=== PATIENT | female | born 1980 | race Caucasian/White ===

== ENCOUNTER 2024-05-06 13:22 | Outpatient (AMB) | payer OTHER, SELFPAY ==
--- NOTE | 2024-05-06 13:24 | MHC.PC.OV ---
Vital Signs 05/06/24 13:31 Height 5 ft 7.5 in Weight 170 lb BMI 26.2 BP 90/54 L Blood Pressure Location Lt brachial Position Sitting Pulse 67 Pulse Source Pulse Oximeter Temp 97.3 F Temp Source Temporal Artery Scan Pulse Oximetry (%) 98 Oxygen Delivery Method Room Air Intake Visit Reasons: establish care Intake Note: Patient is a new patient here to establish care. Transferring care from [facility]. Medical records have been requested today. Rat Trapper Required: No Accompanied by: Self / Same As Patient Allergies No Known Allergies Allergy (Verified 05/06/24 13:45) Medication List - Last Reconciled 05/06/24 by Sujey Ledezma PA-C No Known Home Meds Tobacco use date assessed: 05/06/24 Dental Screening Dental Screen Date: 05/06/24 Did you have a dental visit in the last 12 months?: Yes Did you have a dental problem in the last 6 months where you did not have access to dental care?: No Was dental information given to patient?: Patient has dentist HPI establish care HPI Details 44-year-old female coming to the office for the 1st time. Patient is not known to [facility]. Patient tells us today she was previously being seen at [facility] last seen a couple of years ago. She last had a mammogram 2022 and has a history of calcification being removed from the right breast. She takes gruf-ilz-nnvrzan supplements iron, B12 and vitamin-C as well as hair skin and nail gummies. Last week she tried to donate blood and was told that she had too low of an iron level. She does note increased anxiety related to life stress but utilizes a counselor when needed. She does have an issue with constipation and drinks plenty of water host health with her bowel motility. She does also mentioned having small bumps on the scalp that has been growing with a past several years and are occasionally tender to palpation. She does have a history of 1 being removed. [facility] Medical History (Updated 05/06/24 @ 14:25 by Sujey Ledezma PA-C) Microcalcification of right breast on mammogram Depression Surgical History (Updated 05/06/24 @ 13:49 by CLARE Hudson) Hx of breast lump removal Social History Housing: House Patient Tobacco Use Status: Never used Tobacco e-Cigarette/Vaping Use: Never Used service: No Current occupational status: employed Current occupation: technical research scientist Cognitive needs: No Hearing needs: No Vision needs: No Questionnaire PHQ-9 Over the last 2 weeks, how often have you been bothered by any of the following problems? 1. Little interest or pleasure in doing things: not at all 2. Feeling down, depressed, or hopeless: several days 3. Trouble falling or staying asleep, or sleeping too much: not at all 4. Feeling tired or having little energy: several days 5. Poor appetite or overeating: not at all 6. Feeling bad about yourself - or that you are a failure or have let yourself or your family down: several days 7. Trouble concentrating on things, such as reading the newspaper or watching television: not at all 8. Moving or speaking so slowly that other people could have noticed. Or the opposite - being so fidgety or restless that you have been moving around a lot more than usual: several days 9. Thoughts that you would be better off or of hurting yourself in some way: not at all Total score: 4 Depression Screening Interpretation: Positive (counseling PRN ) Depression Screening Follow-up: In treatment Depression Screening Done: Yes 48415 - PHQ-9 Billing: Yes Source: Developed by Drs. Willis Montez, Caitlin Pemberton, Pablo Burns and colleagues, with an educational daniel from [employer]. Thrive Questionnaire Date Thrive assessed: 05/06/24 I am a: Patient What is your living situation today?: I have a steady place to live Within the past 12 months, did the food you bought not last and you didn't have the money to get more?: Never true Within the past 12 months, did you worry whether your food would run out before you got money to buy more?: Never true Do you have trouble paying for medicines?: No Do you have trouble getting transportation to medical appointments?: No Do you have trouble paying your heating and electricity bill?: No Do you have trouble taking care of your child, family member or friend?: No Do you have trouble with day-to-day activities such as bathing, preparing meals, shopping, managing finances, etc.?: No Are you currently unemployed and looking for a job?: No Are you interested in more education?: Yes Please select the resources that you would like help with: None Currently or been in a relationship where the following occur: I choose not to answer THRIVE Score: 0 AUDIT C Alcohol Use Questionnaire (AUDIT-C) 1. How often do you have a drink containing alcohol?: Monthly or less 2. How many drinks containing alcohol do you have on a typical day when you are drinking?: 1 or 2 3. How often do you have six or more drinks on one occasion?: Never Total Score: 1 TALIA-7 AMB Questionnaire TALIA-7 Date TALIA - 7 assessed: 05/06/24 Feeling nervous, anxious, or on edge: 1 = Several days Not being able to stop or control worryin = Several days Worrying too much about different things: 1 = Several days Trouble relaxin = Several days Being so restless that it is hard to sit still: 1 = Several days Becoming easily annoyed or irritable: 1 = Several days Feeling afraid as if something awful might happen: 1 = Several days Total TALIA-7 score (0-4 normal; 5-9 mild; 10-14 moderate; 15-21 severe): 7 Source: Developed by Drs. Willis Montez, Caitlin Pemberton, Pablo Burns and colleagues, with an educational daniel from [employer]. TALIA-7 Assessment Billing TALIA-7 Assessment Tool: TALIA-7 Assessment 21171 Review of Systems Const Denies body aches, Denies chills, Denies fever(s), Denies headache(s) and Denies poor appetite Eyes Reports no additional complaints ENT Denies dizziness and Denies headache(s) Card Denies chest pain, Denies syncope, Denies lightheadedness and Denies dyspnea Resp Denies cough and Denies dyspnea GI Denies abdominal pain, Reports bloating, Reports constipation, Denies diarrhea, Denies nausea and Denies vomiting Reports no additional complaints Musc Reports no additional complaints and Denies abnormal gait Skin/Breast Reports system reviewed and no additional complaints, except as documented Neuro Denies abnormal gait, Denies dizziness, Denies syncope and Denies headache(s) Psych Reports no additional complaints Physical exam (Primary Care) Vital Signs: Last Vital Signs Temp 97.3 F 05/06/24 13:31 Pulse 67 05/06/24 13:31 BP 90/54 L 05/06/24 13:31 Pulse Ox 98 05/06/24 13:31 Oxygen Delivery Method Room Air 05/06/24 13:31 BMI result Body Mass Index 26.2 Tobacco/Smoking Status: Tobacco use Status Tobacco use date assessed 05/06/24 05/06/24 13:25 Patient Tobacco Use Status Never used Tobacco 05/06/24 13:25 e-Cigarette/Vaping Use Never Used 05/06/24 13:25 PHQ-9: PHQ-9 Score PHQ-9: Total score 4 05/06/24 13:49 Depression Screening Interpretation: Positive (counseling PRN ) Depression Screening Follow-up: In treatment Thrive Assessment: Date of Thrive Assessment Date Thrive assessed 05/06/24 05/06/24 13:24 Currently or been in a relationship where the following occur: I choose not to answer Const General: cooperative, healthy appearing, comfortable and no acute distress Orientation/consciousness: patient oriented x3 HENMT Other: Multiple small, round, mobile, nontender masses on the scalp Head: Yes normocephalic Ears: hearing grossly normal bilaterally General nose exam: Normal external nose present Eyes General: appearance normal, both eyes and all related structures Conjunctivae: conjunctivae normal Neck Neck: Yes full ROM and Yes no lymphadenopathy Resp Effort & Inspection: normal respiratory effort Auscultation: clear to auscultation bilaterally, no crackles, no rales, no rhonchi and no wheezes Cardio Rate: regular rate Rhythm: regular rhythm Skin General skin exam: no rashes or lesions noted Neuro General: patient oriented x3 Gait exam (Neuro): Normal gait present Extrem General: Yes normal to inspection, Yes full ROM and No edema Psych Affect: normal affect Attitude: cooperative Insight: Good insight present (Psych) Judgement: Good judgement present (Psych) Coding Level of Care Code New Pt Level 4 (63937) Diagnoses Iron deficiency E61.1 Screening for hypercholesterolemia Z13.220 Lipoma D17.9 Constipation K59.00 Screening for breast cancer Z12.39 Anxiety F41.9 Additional Codes TALIA-7 Assessment Billing - TALIA-7 Assessment Tool: TALIA-7 Assessment 37399 ([id number]) PHQ-9 - 27227 - PHQ-9 Billing: Yes ([id number]) Assessment & Plan Assessment & Plan (1) Iron deficiency: Code(s): E61.1 - Iron deficiency Category: Medical Plan: Ordered for blood work for further evaluation. (2) Screening for hypercholesterolemia: Code(s): Z13.220 - Encounter for screening for lipoid disorders Category: Medical Plan: Ordered for blood work (3) Lipoma: Code(s): D17.9 - Benign lipomatous neoplasm, unspecified Category: Medical Plan: Patient has multiple small, mobile, nontender masses on scalp. Patient would like to have evaluated and possibly removed. Referral placed to General surgery. (4) Constipation: Code(s): K59.00 - Constipation, unspecified Category: Medical Plan: Three rules of constipation; increase water intake, increase fiber rich foods, exercise. Patient provided with low FODMAP diet information at this time. Advised to use MiraLax as needed for constipation. (5) Screening for breast cancer: Code(s): Z12.39 - Encounter for other screening for malignant neoplasm of breast Category: Medical Plan: Last screening mammogram January 2023 recommending routine annual screening. She does have a history of calcifications removed from the right breast 2021. (6) Anxiety: Code(s): F41.9 - Anxiety disorder, unspecified Category: Medical Plan: Patient states she has been having increased anxiety regarding recent life stress. She utilizes counseling services as needed. Declines medication at this time or further referrals. Plan This note was constructed using voice recognition software. While every effort has been made to ensure accuracy and rn field case manager, still areas may have been included sometimes these areas may affect the content or meeting of the given symptoms. Total time spent caring for the patient today was 30 minutes. This includes time spent before the visit reviewing the chart, time spent during the visit, and time spent after the visit and documentation. Orders: Orders Comprehensive Met. Panel Today Z00.00 - Encounter for general adult medical examination without abnormal findings Complete Blood Count Auto Diff Today Z00.00 - Encounter for general adult medical examination without abnormal findings Free T4 (Free Thyroxine) Today Z00.00 - Encounter for general adult medical examination without abnormal findings TSH reflex Free T4 Today Z00.00 - Encounter for general adult medical examination without abnormal findings Lipid Panel Today Z13.220 - Encounter for screening for lipoid disorders Vitamin B12 and Folate Today Z00.00 - Encounter for general adult medical examination without abnormal findings MM tomosynthesis screening BI Today Z12.31 - Encounter for screening mammogram for malignant neoplasm of breast IRON PROFILE Today E61.1 - Iron deficiency Vitamin D 25-OH Total Today Z00.00 - Encounter for general adult medical examination without abnormal findings Referrals Gastroenterology Referral Z12.11 - Encounter for screening for malignant neoplasm of colon SENIOR QA ENGINEER Referral Z12.4 - Encounter for screening for malignant neoplasm of cervix General Surgery Referral D17.9 - Benign lipomatous neoplasm, unspecified
--- OUTSIDE RECORDS SUMMARY | 2024-05-06 13:29 | XMS_ITS | Clinical Summary ---
Author Organization [facility] Address [address] [place] [address] Care Team Providers Care Plate Shear Operator Name Role Phone Steffanie Gandhi NP Primary Care Provider [phone] Family History Medical History Relation Name Comments Cancer Father Heart attack Father Heart attack Maternal Grandfather COPD Mother Psoriasis Sister Relation Name Status Comments Brother Alive Father Maternal Grandfather Maternal Grandmother Mother Paternal Grandfather Paternal Grandmother Sister Alive Social History Tobacco Use Types Packs/Day Years Used Date Smoking Tobacco: Never Alcohol Use Standard Drinks/Week Comments Never 0 (1 standard drink = 0.6 oz pur e alcohol) Comments Unknown Sex and Gender Information Value Date Recorded Sex Assigned at Not on file Legal Sex Female 5:05 PM EST Gender Identity Not on file Sexual Orientation Not on file Obstetrics History Last Filed Vital Signs Vital Sign Reading Time Taken Comments Blood Pressure 110/70 10/30/2022 8:58 AM EDT Pulse 81 10/30/2022 8:58 AM EDT Temperature - - Respiratory Rate - - Oxygen Saturation - - Inhaled Oxygen Concentration - - Weight 74.9 kg (165 lb 3.2 oz) 10/30/2022 8:58 A M EDT Height 154.3 cm (5' 0.75 ) 10/30/2022 8:58 AM ED T Body Mass Index 31.47 10/30/2022 8:58 AM EDT Plan of Treatment Health Maintenance Due Date Last Done Comments Cervical Cancer Screening: HPV 1999 Colorectal Cancer Screening: Colonoscopy 03/02/2022 Depression Screening 03/02/2022 HIV Screening 03/02/2022 Hepatitis C Screening 03/02/2022 Social Influencers of Health Screening 03/02/2022 Breast Cancer Screening 05/30/2023 05/29/2021 COVID-19 Vaccine ( season) 2023 Influenza Vaccine (#1) 2023 1, 12/02/2019, 01/28/2019, Additional history exists DTaP,Tdap,and Td Vaccines (6 - Td or Tdap) 09/29/2029 09/30/2019, 07/14/2017, 11/25/2014, Additional history exists Varicella Vaccines Completed 02/06/1996, 05/09/1995 Hepatitis B Vaccines Completed 09/06/1996, 04/08/1996, 03/08/1996 MMR Vaccines Completed 01/24/2009, 11/11/1989 HIB Vaccines Aged Out No longer eligi ble based on patient's age to complete this topic HPV Vaccines Aged Out No longer eligi ble based on patient's age to complete this topic Hepatitis A Vaccines Aged Out No long er eligible based on patient's age to complete this topic IPV Vaccines Aged Out No longer eligi ble based on patient's age to complete this topic Meningococcal ACWY Vaccine Aged Out N o longer eligible based on patient's age to complete this topic Pneumococcal Vaccine: Pediatrics (0 to 5 Years) and At-Risk Patients (6 to 64 Years) Aged Out No longer eligible based on patient's age to complete this topic RSV Immunization Patients Under 20 months Aged Out No longer eligible based on patient's age to complete this topic Procedures Procedure Name Priority Date/Time Associated Diagnosis Comments SCREENING MAMMOGRAPHY BI 2-VIEW BREAST INC CAD Routine 05/29/2021 3:21 PM EST Encounter for screening mammogram for malignant neoplasm of breast from Last 3 Months or Most Recently Relevant to Health Maintenance Results * SCREENING MAMMOGRAPHY BI 2-VIEW BREAST INC CAD (05/29/2021 3:21 PM EST) Anatomical Region Laterality Modality Radiographic Dagmar ging 02/19/2021 3:17 PM EST Narrative 05/31/2021 11:52 AM EST This is a summary report. The complete report is available in the patient's medical record. If you cannot access the medical record, please contact the sending organization for a detailed fax or copy. Baseline screening, full field digital 2D and 3D mammography, reviewed with CAD. ??The breasts are composed of fatty and fibroglandular tissue. ??No suspicious mass or architectural distortion is identified. There are rounded and punctate microcalcifications loosely grouped and scattered in the upper outer quadrant of the right breast. IMPRESSION: : Microcalcifications upper outer right breast. ??Magnification views of the right breast in the CC and medial projections are suggested. ??The patient will be contacted by the radiology department to arrange for the additional imaging. BIRADS 0-incomplete: Additional imaging evaluation needed 5 year breast cancer risk assessment 0.5 % Lifetime breast cancer risk assessment 7.1 % Breast cancer risk category Low (<15%) Procedure Note Wanda Laughlin MD - 03/12/2022 This is a summary report. The complete report is available in thepatient's medical record. If you cannot access the medical record, pleasecontact the sending organization for a detailed fax or copy. Baseline screening, full field digital 2D and 3D mammography, reviewedwith CAD. The breasts are composed of fatty and fibroglandular tissue.No suspicious mass or architectural distortion is identified. There are rounded and punctate microcalcifications loosely grouped andscattered in the upper outer quadrant of the right breast. IMPRESSION: : Microcalcifications upper outer right breast. Magnification views of theright breast in the CC and medial projections are suggested. The patientwill be contacted by the radiology department to arrange for theadditional imaging. BIRADS 0-incomplete: Additional imaging evaluation needed 5 year breast cancer risk assessment 0.5 % Lifetime breast cancer risk assessment 7.1 % Breast cancer risk category Low (<15%) us Apryl PALACIOS IMG XR PROCEDURES Final Re sult from Last 3 Months or Most Recently Relevant to Health Maintenance Care Teams Plate Shear Operator Relationship Specialty Start Date End Date Steffanie Gandhi NP PCP - General 10/30/22
--- OUTSIDE RECORDS SUMMARY | 2024-05-06 13:29 | XMS_ITS | Data Portability ---
Author Organization [facility] Maternal Medicine, [facility] (Prof.) Address [address], [address] [place] [address] Assessment No assessment recorded. Plan of Treatment Reminders Order Date Submit Date Provider Last Modified By Organization Details Last Modified Time Details Appointments None record ed. Lab None record ed. Referral None record ed. Procedures None record ed. Surgeries None record ed. Imaging None record ed. Medication Orders None record ed. Patient TargetsNo targets recorded. Patient InstructionsNo instructions recorded. Reason for Referral None Reported. Medical Equipment None Reported. Medications Name Sig Start Date Stop Date Status Note LastModified by Organization Details LastModified Time azithromycin 250 mg tablet active Not Available Not Availabl e Not Available prednisone 50 mg tablet active Not Available Not Available No t Available Vitals None Recorded Social History None recorded. Functional Status None recorded. Mental Status None recorded. Family History Nothing Reported. Medical History No medical history recorded. Gynecological HistoryNo gynecological history recorded. Obstetrics History GPAL:G 0 P 0 0 0 0 Past Encounters Encounter ID Performer Location Encounter Start Date Encounter Closed Date Diagnosis/Indication Diagnosis SNOMED-CT Code Diagnosis ICD10 Code Diagnosis Note [id number] [address] 06/19/2017 12:17:46 06/23/2017 11:57:06 Health Concerns Section Related Observation LastModified by Organization Detai ls LastModified Time None Recorded Concern Status LastModified by Organization Details LastModified Time None Recorded Advance Directives Directive None Recorded Payers Encounter Date Sequence Insurance Name Policy Number Policy Meléndez Covered Member ID Meléndez Member ID Guarantor Name 06/19/2017 1 [place] [id number] Alexy Austin [id number] [facility] Episode No OBEpisode recorded.
--- OUTSIDE RECORDS SUMMARY | 2024-05-06 13:29 | XMS_ITS | Clinical Summary ---
Author Organization [facility] Address [address] [place] [address] Care Team Providers Care Nurse Researcher Name Role Phone Steffanie Gandhi APRN Primary Care Provider [phone] Allergies No known active allergies Medications Medication Sig Dispensed Refills Start Date End Date Status multiple vitamin (M.V.I. Adult) injection Inject into the vein. 0 Active Active Problems No known active problems Family History Medical History Relation Name Comments Cancer Father Heart attack Father Heart attack Maternal Grandfather COPD Mother Psoriasis Sister Relation Name Status Comments Brother Alive Father Maternal Grandfather Maternal Grandmother Mother Paternal Grandfather Paternal Grandmother Sister Alive Social History Tobacco Use Types Packs/Day Years Used Date Smoking Tobacco: Never Tobacco Cessation:Counseling Given: Not Answered Alcohol Use Standard Drinks/Week Comments Never 0 (1 standard drink = 0.6 oz pur e alcohol) socially Sex and Gender Information Value Date Recorded Sex Assigned at Not on file Gender Identity Not on file Sexual Orientation Not on file Job Start Date Occupation Industry Not on file Not on file Not on file Last Filed Vital Signs Vital Sign Reading Time Taken Comments Blood Pressure 110/70 10/30/2022 8:58 AM EDT Pulse 81 10/30/2022 8:58 AM EDT Temperature - - Respiratory Rate - - Oxygen Saturation 99% 10/30/2022 8:58 AM EDT Inhaled Oxygen Concentration - - Weight 74.9 kg (165 lb 3.2 oz) 10/30/2022 8:58 A M EDT Height 154.3 cm (5' 0.75 ) 10/30/2022 8:58 AM ED T Body Mass Index 31.47 10/30/2022 8:58 AM EDT Plan of Treatment Health Maintenance Due Date Last Done Comments Hepatitis C Screening 1978 COVID-19 Vaccine (#1) 1978 Depression Screening 1990 BMI Counseling 02/04/1996 Cervical Cancer Screening (Pap Smear) 1999 Colon Cancer Screening (Colonoscopy) 2023 Preventative Health Evaluation 10/31/2023 10/30/2022 Influenza Vaccine (#1) 2023 , 12/02/2019, 01/28/2019, Additional history exists DTap / Tdap / Td (6 - Td or Tdap) 09/29/2029 09/30/2019, 07/14/2017, 11/25/2014, Additional history exists Hepatitis B Vaccines Completed 09/06/1996, 04/08/1996, 03/08/1996 Pneumococcal Vaccine Aged Out No long er eligible based on patient's age to complete this topic RSV Ped < 20 months Aged Out No longe r eligible based on patient's age to complete this topic Care Teams Nurse Researcher Relationship Specialty Start Date End Date Steffanie Gandhi APRN PCP - General Family Medicine 10/30/22
[2024-05-06 13:31] VITALS: BP 90/54; PULSE 67; TEMP 36.3; O2SAT 98; BMI 26.2
== END 2024-05-06 14:08 | disposition home or self-care (01) ==
DX: E61.1 Iron deficiency (principal); Z13.220 Encounter for screening for lipoid disorders; D17.9 Benign lipomatous neoplasm, unspecified; K59.00 Constipation, unspecified; Z12.39 Encounter for other screening for malignant neoplasm of breast; F41.9 Anxiety disorder, unspecified

== ENCOUNTER → 2024-05-06 13:22 | Outpatient (BNVA) | payer OTHER, SELFPAY | DX: E61.1 Iron deficiency (principal); D17.0 Benign lipomatous neoplasm of skin and subcutaneous tissue of head, face and neck; K59.00 Constipation, unspecified; F41.9 Anxiety disorder, unspecified | CPT/HCPCS: 96127 ==

== ENCOUNTER 2024-05-13 07:11 | Outpatient (REF) | payer OTHER, SELFPAY ==
--- OUTSIDE RECORDS SUMMARY | 2024-05-13 07:15 | XMS_ITS | Clinical Summary ---
Author Organization [facility] Address [address] [place] [address] Care Team Providers Care Straw Hat Washer Operator Name Role Phone Steffanie Gandhi APRN Primary Care Provider [phone] Allergies No known active allergies Medications Medication [...] age to complete this topic Care Teams Straw Hat Washer Operator Relationship Specialty Start Date End Date Steffanie Gandhi APRN PCP - General Family Medicine 10/30/22
--- OUTSIDE RECORDS SUMMARY | 2024-05-13 07:15 | XMS_ITS | Data Portability ---
Author Organization [facility] Maternal Medicine, [facility] (Prof.) Address [address], [address] [place] [address] Assessment No assessment recorded. Plan of Treatment [...] SNOMED-CT Code Diagnosis ICD10 Code Diagnosis Note [id number] [address] 06/19/2017 12:17:46 06/23/2017 11:57:06 Health Concerns Section Related Observation LastModified by Organization Detai ls LastModified Time None Recorded Concern Status LastModified by Organization Details LastModified Time None Recorded Advance Directives Directive None Recorded Payers Encounter Date Sequence Insurance Name Policy Number Policy Meléndez Covered Member ID Meléndez Member ID Guarantor Name 06/19/2017 1 [place] [id number] Alexy Austin [id number] Mine [facility] Episode No OBEpisode recorded.
[2024-05-13 07:24] LABS: MANUAL DIFF FLAG NO
[2024-05-13 07:35] LABS: Basophils Absolute Auto 0.1 X10*3/uL (0.0-0.2); Eosinophils Absolute Auto 0.1 X10*3/uL (0.0-0.4); Eosinophils Percent Auto 1.8 % (0-4); Hematocrit 40.4 % (37.0-47.0); Hemoglobin 13.7 g/dl (12.0-16.0); Imm Gran Abs Auto 0.02 X10*3/uL (0.00-0.03); Imm Gran Pct Auto 0.3 % (0.0-0.4); Lymphocytes Absolute Auto 2.7 X10*3/uL (1.2-4.9); Lymphocytes Percent Auto 36.7 % (20-40); Mean Corpuscular HGB Conc 33.9 g/dl (31.0-35.0); Mean Corpuscular Hemoglobin 30.1 pg (27.0-33.0); Mean Corpuscular Volume 88.8 fL (80.0-98.0); Mean Platelet Volume 9.4 fL (9.4-12.3); Monocytes Absolute Auto 0.6 X10*3/uL (0.1-1.2); Monocytes Percent Auto 8.4 % (2-11); Neutrophils Absolute Auto 3.8 x10*3/uL (2.0-8.3); Neutrophils Percent Auto 51.8 % (45-73); Platelet Count 226 X10*3/uL (160-400); Red Blood Count 4.55 X10*6/uL (4.20-5.50); Red Cell Distribution Width 11.7 % (11.0-16.0); White Blood Count 7.4 X10*3/uL (4.8-10.8)
[2024-05-13 07:55] LABS: Alanine Aminotransferase 18 U/L (0-31); Albumin Level 4.2 g/dL (3.5-5.0); Alkaline Phosphatase 60 U/L (39-117); Anion Gap 10 (12-20); Aspartate Amino Transferase 23 U/L (5-31); Bilirubin Total 0.9 mg/dL (0.0-1.0); Blood Urea Nitrogen 11 mg/dL (9-16); Calcium 9.1 mg/dL (8.4-10.2); Carbon Dioxide 27 mmol/L (22-29); Chloride 106 mmol/L (96-108); Cholesterol 135 mg/dL (<200); Estimated Glomerular Filt Rate > 60; Glucose Random 85 mg/dL (60-115); HDL Cholesterol 64 mg/dL (>40); Iron 73 mcg/dL (30-160); LDL Cholesterol Calculated 61 mg/dL (<100); Percent Iron Saturation 27 % (15-50); Potassium 3.8 mmol/L (3.3-5.1); Sodium 139 mmol/L (135-145); Total Iron Binding Capacity 270 mcg/dL (228-428); Total Protein 7.8 g/dL (6.5-8.0); Triglycerides 54 mg/dL (<150); Unsaturated Iron Binding 197 ug/dL
[2024-05-13 08:22] LABS: Free T4 (Free Thyroxine) 0.98 ng/dL (0.71-1.85); TSH reflex Free T4 1.23 uIU/mL (0.32-4.0); Vitamin D 25-OH Total 40.2 ng/mL (>30)
[2024-05-13 08:35] LABS: Folate 14.6 ng/mL (> or = 4.0); Vitamin B12 1618 pg/mL (200-900)
== END 2024-05-13 07:12 | disposition home or self-care (01) ==
LOC: HO.LAB 07:11
DX: Z00.00 Encounter for general adult medical examination without abnormal findings (principal); E61.1 Iron deficiency; Z13.220 Encounter for screening for lipoid disorders; Z13.6 Encounter for screening for cardiovascular disorders
CPT/HCPCS: 36415; 80053; 80061; 82306; 82607; 82746; 83540; 84439; 84443; 85025

== ENCOUNTER 2024-05-25 12:54 | Outpatient (AMB) | payer OTHER, SELFPAY ==
--- NOTE | 2024-05-25 12:57 | MHC.OFFVIS ---
Intake Visit Reasons: Mass~Scalp Intake Note: Patient referred by pcp Sujey Ledezma PA-C for mass on scalp. Has 3 cysts on scalp that vary in size. Present for yrs. Patient c/o: hx of cyst removal on vertex 2yrs ago. Paint Formulator Required: No Accompanied by: Self / Same As Patient Allergies No Known Allergies Allergy (Verified 05/25/24 13:00) Medication List - Last Reconciled 05/25/24 by Wolfgang Lopez MD No Known Home Meds HPI Comments Details: Patient presents for evaluation of 2 scalp cyst. She has had this indeterminate amount of time. They are each increasing in size, become more symptomatic. She would like to have them removed. She had history of excision of cyst of the scalp in the past. Chart was reviewed and patient evaluated. [facility] Medical History (Updated 05/06/24 @ 14:25 by Sujey Ledezma PA-C) Microcalcification of right breast on mammogram Depression Surgical History (Updated 05/25/24 @ 13:46 by Wolfgang Lopez MD) Hx of breast lump removal Social History Housing: House Patient Tobacco Use Status: Never used Tobacco e-Cigarette/Vaping Use: Never Used service: No Current occupational status: employed Current occupation: electrical service technician Cognitive needs: No Hearing needs: No Vision needs: No Physical Exam HEENT Other: Patient was a 3 x 2 cm right temporal pilar cyst and a 2 x 2 cm vertex scalp pilar cyst Office Procedures Excision Details: Risks, benefits and alternatives of excision of pilar cyst of the scalp x2 were reviewed with the patient and included but not limited to bleeding, infection, recurrence, numbness, pain, scarring the patient wished to proceed. All questions answered. Consent signed. After appropriate positioning and pre Marcaine, patient underwent 1% lidocaine and Betadine prep and uneventful enucleation of the 2 cysts, each sent separately to pathology. Each wound was irrigated, secured hemostasis, and closed using interrupted 2-0 Prolene suture followed by bacitracin. Patient tolerated procedure well. 35377-Xlnlfthu scalp/neck/hands/feet/genitalia 1.1cm-2cm 70840-Osjzfwwn scalp/neck/hands/feet/genitalia 2.1cm-3cm Procedure code (CPT) selection complete Office Meds lidocaine 1 %-epinephrine 1:100,000 injection solution Performing Provider: Wolfgang Lopez MD Performing Location: [facility] General Surgeons Administered by: Wolfgang Lopez MD on 05/25/24 13:45 Dose Route Admin Location Dispensed Lot Number Expiration Date NDC Medical Director Of Hospice 10 mL Infiltration 10 mL Assessment & Plan Assessment & Plan (1) Pilar cysts: Code(s): L72.11 - Pilar cyst Category: Surgical Plan: Patient was been given local instructions including bacitracin to the area each day, ice periodically, Tylenol or Motrin p.r.n. pain, and she will see me in 1-1/2 weeks time for follow-up and suture removal or p.r.n.. All questions answered. Orders: Orders AMB Excision Today L72.11 - Pilar cyst Medications: New lidocaine-epinephrine 1 %-1:100,000 10 mL Infiltration ONCE 30 mL 0RF L72.11 - Pilar cyst Coding Level of Care Code New Pt Level 5 (84054) Diagnoses Pilar cysts L72.11 CPT Codes Scalp/Neck/Hands/Feet/Genetalia - CPT: 34618-Gwfluhla scalp/neck/hands/feet/genitalia 1.1cm-2cm ([id number]) Scalp/Neck/Hands/Feet/Genetalia - CPT: 30720-Modmvvwe scalp/neck/hands/feet/genitalia 2.1cm-3cm ([id number])
--- OUTSIDE RECORDS SUMMARY | 2024-05-25 15:56 | XMS_ITS | Clinical Summary ---
Author Organization [facility] Address [address] [place] [address] Care Team Providers Care Wildlife Biostation Research Ecologist Name Role Phone Steffanie Gandhi APRN Primary Care Provider [phone] Allergies No known active allergies Medications Medication [...] age to complete this topic Care Teams Wildlife Biostation Research Ecologist Relationship Specialty Start Date End Date Steffanie Gandhi APRN PCP - General Family Medicine 10/30/22
--- OUTSIDE RECORDS SUMMARY | 2024-05-25 15:56 | XMS_ITS | Clinical Summary ---
Author Organization [employer] [facility] Address [address] [place] [address] Care Team Providers Care Towboat Pilot Name Role Phone Steffanie Gandhi NP Primary Care Provider [phone] Family History Medical History Relation Name Comments [...] patient's age to complete this topic Meningococcal B Vacine Aged Out No lo nger eligible based on patient's age to complete [...] Recently Relevant to Health Maintenance Care Teams Towboat Pilot Relationship Specialty Start Date End Date Steffanie Gandhi NP PCP - General 10/30/22
--- OUTSIDE RECORDS SUMMARY | 2024-05-25 15:56 | XMS_ITS | Data Portability ---
Author Organization [facility] Maternal Medicine, [facility] (Prof.) Address [address], [address] [place] [address] Assessment No assessment recorded. Plan of Treatment [...] SNOMED-CT Code Diagnosis ICD10 Code Diagnosis Note [id number] [address] 06/19/2017 12:17:46 06/23/2017 11:57:06 Health Concerns Section Related Observation LastModified by Organization Detai ls LastModified Time None Recorded Concern Status LastModified by Organization Details LastModified Time None Recorded Advance Directives Directive None Recorded Payers Encounter Date Sequence Insurance Name Policy Number Policy Meléndez Covered Member ID Meléndez Member ID Guarantor Name 06/19/2017 1 [place] [id number] Alexy Avila [id number] 02 Mine Avila OBGyn Episode No OBEpisode recorded.
== END 2024-05-25 13:28 | disposition home or self-care (01) ==
PROVIDERS: Visit Provider Surgery
DX: L72.11 Pilar cyst (principal)
CPT/HCPCS: 11422; 11423; 99204

== ENCOUNTER 2024-05-25 12:54 | Outpatient (REF) | payer OTHER, SELFPAY ==
--- OUTSIDE RECORDS SUMMARY | 2024-05-25 18:10 | XMS_ITS | Clinical Summary ---
Author Organization [facility] Address [address] [place] [address] Care Team Providers Care Emergency Room Specialist Name Role Phone Steffanie Gandhi APRN Primary Care Provider [phone] Allergies No known active allergies Medications Medication [...] age to complete this topic Care Teams Emergency Room Specialist Relationship Specialty Start Date End Date Steffanie Gandhi APRN PCP - General Family Medicine 10/30/22
--- OUTSIDE RECORDS SUMMARY | 2024-05-25 18:10 | XMS_ITS | Clinical Summary ---
Author Organization [employer] [facility] Address [address] [place] [address] Care Team Providers Care Dye Beck Reel Operator Name Role Phone Steffanie Gandhi NP Primary Care Provider [phone] Family History Medical History Relation Name Comments [...] Recently Relevant to Health Maintenance Care Teams Dye Beck Reel Operator Relationship Specialty Start Date End Date Steffanie Gandhi NP PCP - General 10/30/22
== END 2024-05-25 12:55 | disposition home or self-care (01) ==
LOC: HO.LNP 12:54
PROVIDERS: Visit Provider Surgery
DX: L72.11 Pilar cyst (principal)
CPT/HCPCS: 11422; 11423; 88304; J2004

== ENCOUNTER 2024-06-08 14:30 | Outpatient (AMB) | payer OTHER, SELFPAY ==
--- NOTE | 2024-06-08 14:55 | MHC.OFFVIS ---
Intake Visit Reasons: suture removal Mass~Scalp Allergies No Known Allergies Allergy (Verified 05/25/24 13:00) HPI Comments Details: Status post scalp cyst excision x2. No wound issues or complaints. Pathology is benign [facility] Medical History (Updated 05/06/24 @ 14:25 by Sujey Ledezma PA-C) Microcalcification of right breast on mammogram Depression Surgical History (Updated 06/08/24 @ 14:56 by Wolfgang Lopez MD) Hx of breast lump removal Social History Housing: House Patient Tobacco Use Status: Never used Tobacco e-Cigarette/Vaping Use: Never Used service: No Current occupational status: employed Current occupation: advanced manufacturing technician Cognitive needs: No Hearing needs: No Vision needs: No Physical Exam HEENT Other: Both incision sites clean dry and intact. Uneventful suture removal. Assessment & Plan Assessment & Plan (1) Visit for wound check: Code(s): Z51.89 - Encounter for other specified aftercare Category: Surgical Plan Patient was been given local instructions, and will follow-up p.r.n.. All questions answered Coding Level of Care Code Global (91855) Diagnoses Visit for wound check Z51.89
--- OUTSIDE RECORDS SUMMARY | 2024-06-08 17:15 | XMS_ITS | Clinical Summary ---
Author Organization [employer] [facility] Address [address] [place] [address] Care Team Providers Care Registry Np Name Role Phone Steffanie Gandhi NP Primary Care Provider [phone] Family History Medical History Relation Name Comments [...] Recently Relevant to Health Maintenance Care Teams Registry Np Relationship Specialty Start Date End Date Steffanie Gandhi NP PCP - General 10/30/22
--- OUTSIDE RECORDS SUMMARY | 2024-06-08 17:15 | XMS_ITS | Data Portability ---
Author Organization [facility] Maternal Medicine, [facility] (Prof.) Address [address], [address] [place] [address] Assessment No assessment recorded. Plan of Treatment [...] SNOMED-CT Code Diagnosis ICD10 Code Diagnosis Note [address] [address] 06/19/2017 12:17:46 06/23/2017 11:57:06 Health Concerns Section Related Observation LastModified by Organization Detai ls LastModified Time None Recorded Concern Status LastModified by Organization Details LastModified Time None Recorded Advance Directives Directive None Recorded Payers Encounter Date Sequence Insurance Name Policy Number Policy Meléndez Covered Member ID Meléndez Member ID Guarantor Name 06/19/2017 1 [place] [id number] Alexy Avila [id number] 02 Mine Avila OBGyn Episode No OBEpisode recorded.
--- OUTSIDE RECORDS SUMMARY | 2024-06-08 17:15 | XMS_ITS | Clinical Summary ---
Author Organization [facility] Address [address] [place] [address] Care Team Providers Care Wildland Fire Fighter Name Role Phone Steffanie Gandhi APRN Primary Care Provider [phone] Allergies No known active allergies Medications Medication [...] age to complete this topic Care Teams Wildland Fire Fighter Relationship Specialty Start Date End Date Steffanie Gandhi APRN PCP - General Family Medicine 10/30/22
== END 2024-06-08 14:55 | disposition home or self-care (01) ==
LOC: HO.HGS 14:30
PROVIDERS: Visit Provider Surgery
DX: Z51.89 Encounter for other specified aftercare (principal)
CPT/HCPCS: 99024

== ENCOUNTER → 2024-06-08 14:30 | Outpatient (BNVA) | payer OTHER, SELFPAY | PROVIDERS: Visit Provider Surgery ==

== ENCOUNTER → 2024-06-22 14:00 | Outpatient (BNV) | payer OTHER, SELFPAY | PROVIDERS: Visit Provider Internal Medicine | DX: Z12.31 Encounter for screening mammogram for malignant neoplasm of breast (principal) | CPT/HCPCS: 77063; 77067 ==

== ENCOUNTER 2024-06-22 14:02 | Outpatient (REF) | payer OTHER, SELFPAY ==
--- OUTSIDE RECORDS SUMMARY | 2024-06-22 16:46 | XMS_ITS | Data Portability ---
Author Organization [facility] Maternal Medicine, [facility] (Prof.) Address [address], [address] [place] [address] Assessment No assessment recorded. Plan of Treatment [...] SNOMED-CT Code Diagnosis ICD10 Code Diagnosis Note [id number] [address] 06/19/2017 12:17:46 06/23/2017 11:57:06 Health Concerns Section Related Observation LastModified by Organization Detai ls LastModified Time None Recorded Concern Status LastModified by Organization Details LastModified Time None Recorded Advance Directives Directive None Recorded Payers Encounter Date Sequence Insurance Name Policy Number Policy Meléndez Covered Member ID Meléndez Member ID Guarantor Name 06/19/2017 1 [place] [id number] Tracey Austin [id number] 02 Mine Avila OBGyn Episode No OBEpisode recorded.
--- OUTSIDE RECORDS SUMMARY | 2024-06-22 16:46 | XMS_ITS | Clinical Summary ---
Author Organization [employer] [facility] Address [address] [place] [address] Care Team Providers Care Choir Singer Name Role Phone Steffanie Gandhi NP Primary Care Provider [phone] Family History Medical History Relation Name Comments [...] Recently Relevant to Health Maintenance Care Teams Choir Singer Relationship Specialty Start Date End Date Steffanie Gandhi NP PCP - General 10/30/22
--- OUTSIDE RECORDS SUMMARY | 2024-06-22 16:46 | XMS_ITS | Clinical Summary ---
Author Organization [facility] Address [address] [place] [address] Care Team Providers Care Personnel Consultant Name Role Phone Steffanie Gandhi APRN Primary Care Provider [phone] Allergies No known active allergies Medications Medication [...] age to complete this topic Care Teams Personnel Consultant Relationship Specialty Start Date End Date Steffanie Gandhi APRN PCP - General Family Medicine 10/30/22
== END 2024-06-22 14:03 | disposition home or self-care (01) ==
LOC: HO.MAMMO 14:02
DX: Z12.31 Encounter for screening mammogram for malignant neoplasm of breast (principal)
CPT/HCPCS: 77063; 77067

== ENCOUNTER 2024-08-03 13:36 | Outpatient (AMB) | payer OTHER, SELFPAY ==
--- NOTE | 2024-08-03 13:42 | MHC.PC.OV ---
Vital Signs 08/03/24 13:43 Height 5 ft 7.5 in Weight 169 lb 2 oz BMI 26.1 BP 110/62 Blood Pressure Location Lt brachial Position Sitting Pulse 57 Pulse Source Pulse Oximeter Temp 97.3 F Temp Source Temporal Artery Scan Pulse Oximetry (%) 97 Oxygen Delivery Method Room Air Intake Visit Reasons: annual exam Intake Note: Patient is here today for a physical. Utilities Manager Required: No Theater Manager: Not Required per policy Accompanied by: Self / Same As Patient Allergies No Known Allergies Allergy (Verified 08/03/24 13:58) Medication List - Last Reconciled 08/03/24 by Sujey Ledezma PA-C No Known Home Meds Tobacco use date assessed: 08/03/24 Dental Screening Dental Screen Date: 05/06/24 HPI annual exam HPI Details 44-year-old female with past medical history of iron-deficiency anemia, anxiety last seen 04/2024 coming in for annual exam. In review of the notes, patient was seen by General surgery 05/2024 for Pilar cyst on the scalp the 3 cyst were surgically excised patient went for postop wound check advised to follow up as needed. Reports enduring left foot pain, attributed to plantar fasciitis and evaluated by podiatry. Anti-inflammatory treatment previously provided some relief; adherence was inconsistent initially, leading to repeated prescription. Describes pain intensity localized to the left heel, exacerbated by ambulation. Reports relief from constipation with maintained hydration; no pharmacological intervention currently used. Experiences reduction in gastrointestinal symptoms, denoted by reduced bloating and gas, without changing diet. Podiatry through [facility] Mammogram: 06/22/2024 repeat in 1 year Pap smear: Referral was placed to gynecology at last visit Colonoscopy: Referral was placed to GI at last visit vaccines: DED [facility] Medical History Microcalcification of right breast on mammogram Depression Surgical History History of removal of cyst Hx of breast lump removal Social History Housing: House Patient Tobacco Use Status: Never used Tobacco e-Cigarette/Vaping Use: Never Used Second Hand Smoke Exposure: No service: No Current occupational status: employed Current occupation: technical supervisor Cognitive needs: No Hearing needs: No Vision needs: No Questionnaire Thrive Questionnaire Date Thrive assessed: 05/06/24 I am a: Patient What is your living situation today?: I have a steady place to live Within the past 12 months, did the food you bought not last and you didn't have the money to get more?: Never true Within the past 12 months, did you worry whether your food would run out before you got money to buy more?: Never true Do you have trouble paying for medicines?: No Do you have trouble getting transportation to medical appointments?: No Do you have trouble paying your heating and electricity bill?: No Do you have trouble taking care of your child, family member or friend?: No Do you have trouble with day-to-day activities such as bathing, preparing meals, shopping, managing finances, etc.?: No Are you currently unemployed and looking for a job?: No Are you interested in more education?: Yes Please select the resources that you would like help with: None Currently or been in a relationship where the following occur: I choose not to answer THRIVE Score: 0 TALIA-7 AMB Questionnaire TALIA-7 Date TALIA - 7 assessed: 05/06/24 Source: Developed by Drs. Willis Montez, Caitlin Pemberton, Pablo Burns and colleagues, with an educational daniel from [employer]. Review of Systems Const Denies body aches, Denies fatigue, Denies fever(s), Denies frequent falls, Denies headache(s) and Denies weakness Eyes Reports no additional complaints, Denies change in vision and Reports requires corrective lenses ENT Denies dysphagia, Denies dizziness, Denies facial pain, Denies headache(s), Denies nasal congestion and Denies odynophagia Card Denies chest pain, Denies syncope, Denies irregular heart rhythm, Denies leg edema, Denies lightheadedness and Denies dyspnea Resp Denies cough and Denies dyspnea GI Details: gas has been improving Denies abdominal pain, Denies constipation, Denies dysphagia, Denies dyspepsia, Denies diarrhea, Denies nausea, Denies odynophagia and Denies vomiting Denies urinary frequency, Denies dysuria, Denies urinary hesitancy and Denies urinary urgency Musc Details: left foot pain Denies back pain and Denies myalgias Skin/Breast Reports system reviewed and no additional complaints, except as documented Neuro Denies dizziness, Denies syncope, Denies frequent falls, Denies headache(s) and Denies weakness Psych Reports no additional complaints Endo Denies fatigue Physical exam (Primary Care) Vital Signs: Last Vital Signs Temp 97.3 F 08/03/24 13:43 Pulse 57 08/03/24 13:43 BP 110/62 08/03/24 13:43 Pulse Ox 97 08/03/24 13:43 Oxygen Delivery Method Room Air 08/03/24 13:43 BMI result Body Mass Index 26.1 Tobacco/Smoking Status: Tobacco use Status Tobacco use date assessed 08/03/24 08/03/24 13:45 Patient Tobacco Use Status Never used Tobacco 08/03/24 13:45 e-Cigarette/Vaping Use Never Used 08/03/24 13:45 Thrive Assessment: Date of Thrive Assessment Date Thrive assessed 05/06/24 08/03/24 13:45 Currently or been in a relationship where the following occur: I choose not to answer Const General: cooperative, healthy appearing, comfortable and no acute distress Orientation/consciousness: patient oriented x3 HENMT Head: Yes normocephalic Ears: hearing grossly normal bilaterally, external ears normal, TM's normal bilaterally and EAC's normal General nose exam: Normal external nose present Face and sinus: Yes normal facial exam and Yes sinuses nontender Mouth: Normal oral and palatal mucosa present and tongue normal Throat: Yes posterior oropharynx normal Eyes General: appearance normal, both eyes and all related structures Conjunctivae: conjunctivae normal Pupils: Equal, round and reactive pupils present EOM: EOMs intact bilaterally and No Nystagmus present Neck Neck: Yes normal visual inspection, Yes full ROM and Yes no lymphadenopathy Chest Chest palpation & inspection: normal inspection of the chest Resp Effort & Inspection: normal respiratory effort Auscultation: clear to auscultation bilaterally, no crackles, no rales, no rhonchi, no wheezes and breath sounds present Cardio Rate: regular rate Rhythm: regular rhythm Peripheral pulses: radial pulses present and dorsalis pedis present GI Inspection: Yes normal to inspection and No Abdominal wall edema Palpation (GI): Soft to palpation, not firm and nontender Auscultation: normal bowel sounds Rectal Exam - Female: deferred General: Yes no CVA tenderness Back/Spine/Pelvis Back: no CVA tenderness Skin General skin exam: no rashes or lesions noted Neuro General: patient oriented x3 Cranial nerves: Yes Equal, round and reactive pupils present, Yes Midline tongue present, Yes Ability to bilaterally elevate shoulders present and No Nystagmus present Gait exam (Neuro): Normal gait present Extrem Other: No tenderness to palpation over entirety of left foot and ankle General: Yes normal to inspection, Yes full ROM, No no pedal edema and No edema Psych Speech and movement: Normal speech and movement present Affect: normal affect Insight: Good insight present (Psych) Judgement: Good judgement present (Psych) Coding Level of Care Code Est Pt Prev Care 40-64y(71566) Diagnoses Annual physical exam Z00. Iron deficiency E61.1 Constipation K59.00 Screening for breast cancer Z. Anxiety F41.9 Pilar cysts L72.11 Pain of left heel M79.672 Assessment & Plan Assessment & Plan (1) Annual physical exam: Code(s): Z00.00 - Encounter for general adult medical examination without abnormal findings Category: Medical Plan: Patient is up-to-date on all recommended routine screenings and vaccinations for her age. She is awaiting appointment with Gynecology and Gastroenterology as well. Blood work is up-to-date and has been reviewed with the patient today. At this time in his appropriate to follow up on a yearly basis or sooner as needed. (2) Iron deficiency: Code(s): E61.1 - Iron deficiency Category: Medical Plan: Last blood work did not show iron deficiency anemia and iron level was within normal limits. Continue to monitor at this time (3) Constipation: Code(s): K59.00 - Constipation, unspecified Category: Medical Plan: Three rules of constipation; increase water intake, increase fiber rich foods, exercise. Patient provided with low FODMAP diet information at this time. Advised to use MiraLax as needed for constipation. (4) Screening for breast cancer: Code(s): Z12.39 - Encounter for other screening for malignant neoplasm of breast Category: Medical Plan: Completed 06/22/2024 repeat in 1 year. (5) Anxiety: Code(s): F41.9 - Anxiety disorder, unspecified Category: Medical Plan: Patient states she has been having increased anxiety regarding recent life stress. She utilizes counseling services as needed. Declines medication at this time or further referrals. (6) Pilar cysts: Code(s): L72.11 - Pilar cyst Category: Surgical Plan: Pilar cysts recently removed by general surgery patient feels well after the procedure incisions are healing well no evidence of infection (7) Pain of left heel: Code(s): M79.672 - Pain in left foot Category: Medical Plan: Patient having pain in the left heel consistent with plantar fasciitis. She was evaluated by Podiatry and given an anti-inflammatory which temporarily relieved her foot pain. Recommend stretching and patient was provided with resources regarding plantar fasciitis today's visit. Continue to use Tylenol and ibuprofen as needed and also discussed comfortable footwear. Continue to follow with Podiatry Plan The management of plantar fasciitis involves a combination of stretching exercises targeting the calf and ankle areas to relieve tension. The patient will continue using supportive footwear with appropriate inserts. Further interventions will be revisited if symptoms persist. The patient's efforts in maintaining adequate hydration have proven effective in managing the recent bout of constipation, and these habits are encouraged. Routine procedures such as mammograms have been updated seamlessly, with IT considerations made to synchronize upcoming preventive measures including colonoscopy. This note was constructed using voice recognition software. While every effort has been made to ensure accuracy and mastic man, still areas may have been included sometimes these areas may affect the content or meeting of the given symptoms. Total time spent caring for the patient today was 30 minutes. This includes time spent before the visit reviewing the chart, time spent during the visit, and time spent after the visit and documentation. Patient was informed and verbally consented to the use of an ambient scribe for clinic note documentation during this visit.
[2024-08-03 13:43] VITALS: BP 110/62; PULSE 57; TEMP 36.3; O2SAT 97; BMI 26.1
--- OUTSIDE RECORDS SUMMARY | 2024-08-03 14:43 | XMS_ITS ---
Author Name [facility] Organization Unknown Encounters Encounter Type Encounter Reason Primary Diagnosis Location Date Ambulatory Critical [facility] hospital [facility] 01/02/2024 Care Team Organization Name Specialty Phone Email Start Date End [facility] [id number]
--- OUTSIDE RECORDS SUMMARY | 2024-08-03 14:43 | XMS_ITS | Data Portability ---
Author Organization [facility] Maternal Medicine, [facility] (Prof.) Address [address], [address] [place] [address] Assessment No assessment recorded. Plan of Treatment [...] SNOMED-CT Code Diagnosis ICD10 Code Diagnosis Note [id number] Tyler Najera MD [address] [address] 06/19/2017 12:17:46 06/23/2017 11:57:06 Health Concerns Section Related Observation LastModified by Organization Detai ls LastModified Time None Recorded Concern Status LastModified by Organization Details LastModified Time None Recorded Advance Directives Directive None Recorded Payers Encounter Date Sequence Insurance Name Policy Number Policy Meléndez Covered Member ID Meléndez Member ID Guarantor Name 06/19/2017 1 [place] [id number] Tracey Austin [id number] 02 Mine Austin OBGyn Episode No OBEpisode recorded.
--- OUTSIDE RECORDS SUMMARY | 2024-08-03 14:43 | XMS_ITS | Clinical Summary ---
Author Organization [facility] Address [address] [place] [address] Care Team Providers Care Physician Practice Consultant Name Role Phone Steffanie Gandhi APRN Primary Care Provider [phone] Allergies No known active allergies Medications Medication [...] age to complete this topic Care Teams Physician Practice Consultant Relationship Specialty Start Date End Date Steffanie Gandhi APRN PCP - General Family Medicine 10/30/22
== END 2024-08-03 14:16 | disposition home or self-care (01) ==
LOC: HO.HMCH 13:37
DX: Z00.00 Encounter for general adult medical examination without abnormal findings (principal); E61.1 Iron deficiency; K59.00 Constipation, unspecified; Z12.39 Encounter for other screening for malignant neoplasm of breast; F41.9 Anxiety disorder, unspecified; L72.11 Pilar cyst; M79.672 Pain in left foot

== ENCOUNTER → 2024-08-03 13:36 | Outpatient (BNVA) | payer OTHER, SELFPAY | DX: Z13.89 Encounter for screening for other disorder (principal) ==

== ENCOUNTER 2024-10-05 12:39 | Outpatient (AMB) | payer OTHER, SELFPAY ==
[2024-10-05 12:46] VITALS: BP 90/60; PULSE 70; TEMP 36.7; O2SAT 97; BMI 26.4
--- NOTE | 2024-10-05 12:46 | AM.OFFWIN_ITS ---
Intake Vital Signs 10/05/24 12:46 Height 5 ft 7.5 in Weight 171 lb BMI 26.4 BP 90/60 Blood Pressure Location Lt brachial Position Sitting Pulse 70 Pulse Source Pulse Oximeter Temp 98.1 F Temp Source Oral Pulse Oximetry (%) 97 Oxygen Delivery Method Room Air Intake Visit Reasons: EP ? Lyme Intake Note: presents with itchy bulls eye rash on left upper thigh after tick bite 3 days ago. also c/o painful sore on left buttock Patient Tobacco Use Status: Never used Tobacco Allergies No Known Allergies Allergy (Verified 10/05/24 12:50) Do you need a note to return to daycare/school/sports/work: No HPI HPI Comments History of Present Illness Details History - The patient is a 44-year-old female pr esenting with concerns of a possible tick bite. - She noticed a black spot on her left t high three days ago, which she brushed off without realizing it could be a tick. - It was not imbedded or engorged. - The following day, she observed a red spot that has since expanded into a ring, consistent with erythema migrans. - She has not experienced any fever or j oint pain/swelling or surrounding cirucular rash. - Has been in tall grass recently Physical Exam General: Cooperative, healthy appearing, comfortable, no acute distress and well developed Orientation: Patient oriented x3 Limitations: No limitations Head: Normal to inspection Ears: Hearing grossly normal bilaterally Face and sinus: Normal facial exam Eyes: Appearance normal, both eyes and all related structures Neck: Normal visual inspection and Yes full ROM Respiratory: Normal respiratory effort and able to speak in complete sentences. Skin: left upper inner thigh has a 0.3cm pinpoint erythematous raised lesion, no drainage, no EM rash, no warmth noted Neuro: Patient oriented x3 [facility] Medical History Microcalcification of right breast on mammogram Depression Surgical History History of removal of cyst Hx of breast lump removal Social History Housing: House Patient Tobacco Use Status: Never used Tobacco e-Cigarette/Vaping Use: Never Used Second Hand Smoke Exposure: No service: No Current occupational status: employed Current occupation: [employer] Cognitive needs: No Hearing needs: No Vision needs: No Review of Systems Const All systems reviewed & are unremarkable except as noted in HPI and below Physical Exam Vital Signs: Last Vital Signs Temp 98.1 F 10/05/24 12:46 Pulse 70 10/05/24 12:46 BP 90/60 10/05/24 12:46 Pulse Ox 97 10/05/24 12:46 Oxygen Delivery Method Room Air 10/05/24 12:46 BMI result Body Mass Index 26.4 Assessment & Plan Assessment & Plan (1) Bug bite without infection: Code(s): W57.XXXA - Bitten or stung by nonvenomous insect and other nonvenomous arthropods, initial encounter Qualifiers: Encounter type: initial encounter Qualified Code(s): W57.XXXA - Bitten or stung by nonvenomous insect and other nonvenomous arthropods, initial encounter Plan: Plan Patient was informed and verbally consented to the use of an ambient scribe for clinic note documentation during this visit. Possible Tick Bite - it does not appear the tick was actually imbedded and became engorged so very low likelihood of a Lyme transmission. - Prescription for doxycycline 200 mg x1 provided as a precautionary measure, to be taken if symptoms develop, or EM rash develops - Instructed to avoid sun exposure while taking doxycycline to prevent photosensitivity reactions. - the patient on symptoms of Lyme disease and instructed her to monitor for symptoms and return to the clinic if any develop. Medications: New doxycycline hyclate 200 mg (2 x 100 mg) PO once 2 tabs 0RF tick bite ppx Coding Level of Care Code Est Pt Level 3 (44314) Diagnoses Bug bite without infection, initial encounter W57.XXXA Encounter type: initial encounter
--- OUTSIDE RECORDS SUMMARY | 2024-10-05 13:47 | XMS_ITS | Clinical Summary ---
Author Organization [facility] Address [address] [place] [address] Care Team Providers Care Didactic Program In Dietetics Director Name Role Phone Steffanie Gandhi NP Primary Care Provider [phone] Family History Medical History Relation Name Comments [...] Vaccine ( season) 2023 Influenza Vaccine (#1) 2024 , 12/02/2019, 01/28/2019, Additional history exists DTaP,Tdap,and Td [...] age to complete this topic Meningococcal B Vaccine Aged Out No l onger eligible based on patient's age to complete this topic Pneumococcal Vaccine: Pediatrics (0 to 5 Years) and At-Risk Patients (6 to 49 Years) Aged Out No longer eligible based [...] 2D and 3D mammography, reviewed with CAD. The breasts are composed of fatty and fibroglandular tissue. No suspicious mass or architectural distortion is identified. There are rounded and punctate microcalcifications loosely grouped and scattered in the upper outer quadrant of the right breast. IMPRESSION: : Microcalcifications upper outer right breast. Magnification views of the right breast in the CC and medial projections are suggested. The patient will be contacted by the radiology [...] Recently Relevant to Health Maintenance Care Teams Didactic Program In Dietetics Director Relationship Specialty Start Date End Date Steffanie Gandhi NP PCP - General 10/30/22
--- OUTSIDE RECORDS SUMMARY | 2024-10-05 13:47 | XMS_ITS | Clinical Summary ---
Author Organization [facility] Address [address] [place] [address] Care Team Providers Care Metal Bed Assembler Name Role Phone Steffanie Gandhi APRN Primary Care Provider Allergies No known active allergies Medications Medication [...] Health Evaluation 10/31/2023 10/30/2022 Influenza Vaccine (#1) 2024 , 12/02/2019, 01/28/2019, Additional history exists DTap [...] age to complete this topic Care Teams Metal Bed Assembler Relationship Specialty Start Date End Date Steffanie Gandhi APRN PCP - General Family Medicine 10/30/22
--- OUTSIDE RECORDS SUMMARY | 2024-10-05 13:47 | XMS_ITS ---
Author Name [facility] Organization Unknown Encounters Encounter Type Encounter Reason Primary Diagnosis Location Date Ambulatory [facility] 01/02/2024 Care Team Organization Name Specialty Phone Email Start Date End Da te [facility] 2024
--- OUTSIDE RECORDS SUMMARY | 2024-10-05 13:47 | XMS_ITS | Data Portability ---
Author Organization [facility] Maternal Medicine, [facility] (Prof[facility] Address [address], [address] [place] [address] Assessment No assessment recorded. Plan of Treatment [...] SNOMED-CT Code Diagnosis ICD10 Code Diagnosis Note [id number] Tyler Najera MD [address] [address] 06/19/2017 12:17:46 06/23/2017 11:57:06 Health Concerns Section Related Observation LastModified by Organization Detai ls LastModified Time None Recorded Concern Status LastModified by Organization Details LastModified Time None Recorded Advance Directives Directive None Recorded Payers Insurance Date Sequence Insurance Name Policy Number Policy Meléndez Covered Member ID Meléndez Member ID Guarantor Name 07/28/2017 1 [employer] (PPO) [id number] Alexy Avila [id number] Mine Avila 04/08/2017 1 [employer] [id number] Crystal Avila [id number] Crystal Avila OBGyn Episode No OBEpisode recorded.
== END 2024-10-05 13:35 | disposition home or self-care (01) ==
PROVIDERS: Visit Provider Physician Assistant
DX: T63.481A Toxic effect of venom of other arthropod, accidental (unintentional), initial encounter (principal)

== ENCOUNTER 2024-10-12 13:34 | Outpatient (AMB) | payer OTHER, SELFPAY ==
--- NOTE | 2024-10-12 13:34 | MHC.OFFVIS ---
Vital Signs 10/12/24 13:35 Height 5 ft 7.5 in Weight 171 lb BMI 26.4 BP 110/78 Intake Visit Reasons: CONSULTING ENGINEER annual exam/DO NOT RS Endoscopic Technician Required: No Sleep Medicine Physician: Sleep Medicine Physician Present (Kathy/ Amber) Accompanied by: Self / Same As Patient Allergies No Known Allergies Allergy (Verified 10/12/24 13:37) Is last menstrual period known: Yes Last menstrual period: 09/09/24 HPI Comments Details: Presenting for annual exam. No complaints. Last Pap/HPV was many years ago Last Mammogram was in 07/16, BI-RADS 2 No previous screening colonoscopy [facility] Medical History Microcalcification of right breast on mammogram Depression Surgical History History of removal of cyst Hx of breast lump removal Family History Maternal Grandmother Diabetes Father Oral-mouth cancer Social History Household Members: Spouse and Children Housing: House Alcohol intake: current Alcohol intake frequency: holidays/special occasions only Comment: social Patient Tobacco Use Status: Never used Tobacco e-Cigarette/Vaping Use: Never Used Second Hand Smoke Exposure: No service: No Current occupational status: employed Current occupation: [employer] Sexually active: Yes Sexual orientation: Straight/Heterosexual Gender identity: Female Cognitive needs: No Hearing needs: No Vision needs: No Female Reproductive History Menstrual Age of Menarche: 10 Duration of menses: 3-5 days Date of last menstrual period: 09/09/24 control method: other (vasectomy) Total pregnancies: 5 Full term: 4 Number of Living Children: 4 Ab induced: 1 Date of Mammogram: 06/22/24 Review of Systems Const All systems reviewed & are unremarkable except as noted in HPI and below Card Reports as per HPI Resp Reports as per HPI GI Reports as per HPI and Reports no additional complaints Reports as per HPI Physical Exam Vital Signs: Last Vital Signs BP 110/78 10/12/24 13:35 BMI result Body Mass Index 26.4 Const General: cooperative, healthy appearing and comfortable Chest Chest palpation & inspection: normal inspection of the chest and normal palpation of entire chest wall Breast/axilla inspection: normal inspection of the breasts and normal inspection of the axillae Breast/axilla palpation: normal palpation of the breasts, normal palpation of the axillae and no axillary lymphadenopathy Resp Effort & Inspection: normal respiratory effort Auscultation: clear to auscultation bilaterally Percussion: percussion normal Cardio Palpation: normal PMI Rate: regular rate Rhythm: regular rhythm Heart sounds: no murmurs and no rubs Peripheral pulses: Peripheral pulses 2+ throughout GI Inspection: Yes normal to inspection Palpation (GI): Soft to palpation, nontender, no guarding, not rigid and No hepatosplenomegaly present Percussion: Yes normal to percussion Auscultation: normal bowel sounds Rectal Exam - Female: deferred General: Yes bladder normal to palpation External Female Exam: No lesion Speculum Exam - Vagina: normal appearance of the vagina, normal palpation, normal vaginal discharge and not erythematous Speculum Exam - Cervix: normal appearance of the cervix and normal palpation Bimanual exam- vagina & uterus: normal bimanual exam, normal palpation, uterine size normal, bladder normal to palpation, consistency normal and normal palpation Bimanual Exam- Adnexa, other: normal adnexae, no masses and no tenderness Assessment & Plan Assessment & Plan (1) Well woman exam: Code(s): Z01.419 - Encounter for gynecological examination (general) (routine) without abnormal findings Category: Medical Plan: Cotesting done. Instructions given the patient to schedule next screening Mammogram in 08/16. Counseled the patient about the recommended dietary allowance of 1000 mg of Calcium & 600 IU of vitamin D. The patient was instructed to perform monthly self-breast exams and to schedule an annual exam in a year; Referral to GI for screening colonoscopy placed. All questions answered and the patient verbalized understanding. Instructed the patient to schedule annual exam in a year Orders: Referrals Gastroenterology Referral Z12.11 - Encounter for screening for malignant neoplasm of colon Coding Level of Care Code Est Pt Prev Care 40-64y(87903) Diagnoses Well woman exam Z01.419
[2024-10-12 13:35] VITALS: BP 110/78; BMI 26.4
--- OUTSIDE RECORDS SUMMARY | 2024-10-12 14:42 | XMS_ITS | Clinical Summary ---
Author Organization [facility] Address [address] [place] [address] Care Team Providers Care Underwriter Solicitation Director Name Role Phone Steffanie Gandhi APRN Primary Care Provider [phone] Allergies No known active allergies Medications Medication [...] age to complete this topic Care Teams Underwriter Solicitation Director Relationship Specialty Start Date End Date Steffanie Gandhi APRN PCP - General Family Medicine 10/30/22
--- OUTSIDE RECORDS SUMMARY | 2024-10-12 14:42 | XMS_ITS | Data Portability ---
Author Organization [facility] Maternal Medicine, [facility] (Prof.) Address [address], [address] [place] [address] Assessment No assessment recorded. Plan of Treatment [...] SNOMED-CT Code Diagnosis ICD10 Code Diagnosis Note [id number] Tyler Najera MD [address] [address] 06/19/2017 12:17:46 06/23/2017 11:57:06 Health Concerns Section Related Observation LastModified by Organization Detai ls LastModified Time None Recorded Concern Status LastModified by Organization Details LastModified Time None Recorded Advance Directives Directive None Recorded Payers Insurance Date Sequence Insurance Name Policy Number Policy Melénedz Covered Member ID Meléndez Member ID Guarantor Name 07/28/2017 1 [employer] (PP[employer]) [id number] Alexy Avila [id number] Mine Avila 04/08/2017 1 [employer] [id number] Crystal Avila [id number] Crystal Avila OBGyn Episode No OBEpisode recorded.
--- OUTSIDE RECORDS SUMMARY | 2024-10-12 14:42 | XMS_ITS | Clinical Summary ---
Author Organization [employer] [facility] Address [address] [place] [address] Care Team Providers Care Trimming Cutter Machine Name Role Phone Steffanie Gandhi NP Primary Care Provider [phone] Family History Medical History Relation Name Comments [...] HPV 1999 Colorectal Cancer Screening: Colonoscopy 03/02/2022 HIV Screening 03/02/2022 Hepatitis C Screening 03/02/2022 Social Influencers of Health Screening 03/02/2022 Breast Cancer Screening 05/30/2023 05/29/2021 COVID-19 Vaccine ( season) 2023 Depression Screening 03/24/2024 Influenza Vaccine (#1) 2024 , 12/02/2019, 01/28/2019, [...] Recently Relevant to Health Maintenance Care Teams Trimming Cutter Machine Relationship Specialty Start Date End Date Steffanie Gandhi NP PCP - General 10/30/22
== END 2024-10-12 13:59 | disposition home or self-care (01) ==
LOC: HO.HWS 13:34
PROVIDERS: Visit Provider Obstetrics & Gynecology
DX: Z01.419 Encounter for gynecological examination (general) (routine) without abnormal findings (principal)
CPT/HCPCS: 99396; 99459

== ENCOUNTER 2024-10-12 13:34 | Outpatient (REF) | payer OTHER, SELFPAY | END 2024-10-12 13:35 | disposition home or self-care (01) | LOC: HO.LNP 13:34 | PROVIDERS: Visit Provider Obstetrics & Gynecology | DX: Z01.419 Encounter for gynecological examination (general) (routine) without abnormal findings (principal); Z12.11 Encounter for screening for malignant neoplasm of colon | CPT/HCPCS: 87626; 88175 ==